=== PATIENT | female | born 1980 | race Caucasian/White ===

== ENCOUNTER → 2018-08-04 | Outpatient (CLI) | payer BC ==
[2018-08-04 09:36] LABS: Basophils % (A) 1 %; Eosinophils # (A) 0.1 k/uL (0-0.7); Eosinophils % (A) 1 %; HCT 40.4 % (34.0-46.0); HGB 13.4 gm/dL (11.4-16.0); Lymphocytes # (A) 1.5 k/uL (1.0-4.8); Lymphocytes % (A) 30 %; MCH 29.7 pg (25.0-35.0); MCHC 33.1 g/dL (31.0-37.0); MCV 89.6 fL (80.0-100.0); Mean Platelet Volume 6.8; Monocytes # (A) 0.3 k/uL (0-1.0); Monocytes % (A) 5 %; Neutrophils # (A) 3.1 k/uL (1.3-7.7); Neutrophils % (A) 62 %; Platelet Count 235 k/uL (150-450); RBC 4.51 m/uL (3.80-5.40); RDW 13.7 % (11.5-15.5); WBC 5.1 k/uL (3.8-10.6)
[2018-08-04 16:50] LABS: Anion Gap 10.2 mmol/L (4.00-12.00); Calcium 9.2 mg/dL (8.7-10.3); Carbon Dioxide 23.8 mmol/L (21.6-31.8); Potassium 3.7 mmol/L (3.5-5.5)
== END ==
LOC: LABWHC1 08:10
PROVIDERS: ATTEND Psychiatry & Neurology Neurology
DX: Z51.81 Encounter for therapeutic drug level monitoring (principal); Z79.899 Other long term (current) drug therapy
CPT/HCPCS: 36415; 80048; 85025

== ENCOUNTER → 2018-08-04 | Outpatient (CLI) | payer BC ==
--- NOTE | 2018-08-04 08:38 | MM ---
Reason for exam: clinical finding. Last mammogram was performed 4 years and 1 month ago. History: Family history of breast cancer in maternal grandmother at age 70. Physical Findings: Nurse did not find any significant physical abnormalities on exam. MG 3D Diag Mammo W/Cad FLORIDALMA Bilateral CC and MLO view(s) were taken. Prior study comparison: June 30, 2014, bilateral MG screening mammo w CAD. Finding: There is a 8 mm equal density (isodense), oval mass in the lower quadrant, central position of the left breast. There is a chronic nodularity in the right breast. These results were verbally communicated with the patient and result sheet given to the patient on 08/04/18. ASSESSMENT: Incomplete: need additional imaging evaluation, BI-RAD 0 RECOMMENDATION: Ultrasound of the left breast.
--- NOTE | 2018-08-04 08:40 | USB ---
Reason for exam: additional evaluation requested from abnormal screening. History: Family history of breast cancer in maternal grandmother at age 70. US Breast Limited LT Left limited breast ultrasound including focal area of concern, retroareolar and axilla demonstrates a 6 x 3 x 8mm oval, cystic lesion at 5 o'clock. These results were verbally communicated with the patient and result sheet given to the patient on 08/04/18. ASSESSMENT: Probably benign, BI-RAD 3 RECOMMENDATION: Follow-up diagnostic mammogram and ultrasound of the left breast in 6 months.
== END | disposition home or self-care (01) ==
LOC: RADMAMWWP 06:54
PROVIDERS: ATTEND Obstetrics & Gynecology
DX: N64.4 Mastodynia (principal); R92.8 Other abnormal and inconclusive findings on diagnostic imaging of breast
CPT/HCPCS: 77062; 77066

== ENCOUNTER → 2018-08-12 | Outpatient (CLI) | payer BC ==
[2018-08-12 13:08] VITALS: BP 139/81; PULSE 91; RESP 18; TEMP 98; BMI 25.7
--- NOTE | 2018-08-12 14:01 | P.GSHP ---
History of Present Illness H&P Date: 08/12/18 Chief Complaint: breast pain Diane is a 38-year-old white female who presents for breast evaluation. She complains of breast discomfort which appears to be cyclical occurring strongest right before her menstrual period started. [place]. Heart regular. She states that the pain is greatest in the right breast in the upper outer quadrant area and at times extends into the axilla and she feels a sensation of discomfort down her right arm. She states that she does have an IUD in the past several months she did have some spotting in the midportion of her cycle. She states just before the spotting she also has some breast discomfort. The patient does not feel any masses or lumps in her right breast. She does feel in the left breast near the nipple area over area there is some increased nodularity. She had a recent bilateral mammogram and left breast ultrasound performed. The mammogram was performed and [id number]. This revealed an oval mass in the lower quadrant central position of the left breast with chronic nodularity in the right breast. An ultrasound performed on the same day revealed a 6 x 8 mm of the cystic lesion at 5:00 in the left breast. This was felt to be probably benign BIRADS 3 and follow-up mammogram and ultrasound of the left breast in 6 months time was recommended. The patient drinks approximately 1 pop per day. The patient drinks at least one iced tea per day. Does not drink coffee. She stopped chocolate intermittently. She is does not smoke and is not exposed to secondhand smoke. Family history: 1. maternal grandmother: breast cancer, twice 2. maternal grandfather: prostate cancer Hormonal History: menarche: 9 : 7, 4 children, 5 miscarrages, breast fed: yes, first at 24 periods: irregular BCP: 2 years, IUD without hormones hormones: none Surgical History: 1. D&C two 2. 3. lasix 4. anal fissure in 20's Past Medical History: migrains Social History: smoke:none alcohol: none'drugs: none - Constitutional Constitutional: Denies chills, Denies fever - EENT Eyes: Ears: Ears, nose, mouth and throat: Reports headache - Breasts Breasts: - Cardiovascular Cardiovascular: Reports high blood pressure, Denies chest pain, Denies shortness of breath - Respiratory Respiratory: Denies cough, Denies 7 - Gastrointestinal Gastrointestinal: Denies abdominal pain, Denies diarrhea, Denies nausea, Denies vomiting - Genitourinary (Female) Genitourinary: Denies dysuria, Denies hematuria - Menstruation Menstruation: Reports period normal, Reports period spotting - Musculoskeletal Comment: right hand arthritis Musculoskeletal: Denies myalgias - Integumentary Integumentary: Denies pruritus, Denies rash - Neurological Neurological: Denies numbness, Denies weakness - Psychiatric Psychiatric: Denies anxiety, Denies depression - Endocrine Endocrine: Denies fatigue, Denies weight change - Hematologic/Lymphatic Comment: none - Allergic/Immunologic Comment: shots every two weeks Allergic/Immunologic: Reports seasonal allergies Past Medical History Past Medical History: Hypertension Additional Past Medical History / Comment(s): Migraine headaches, seasonal allergies, patient is heterozygous for MTHFR (does not require anticoagulation) History of Any Multi-Drug Resistant Organisms: None Reported Additional Past Surgical History / Comment(s): 1. D&C 2. Lasik (bilateral eye) Past Anesthesia/Blood Transfusion Reactions: No Reported Reaction Past Psychological History: No Psychological Hx Reported Smoking Status: Never smoker Past Alcohol Use History: None Reported Past Drug Use History: None Reported - Past Family History Mother Family Medical History: No Reported History Medications and Allergies Home Medications Medication Instructions Recorded Confirmed Type Loratadine [Claritin] 10 mg PO DAILY 10/16/13 08/12/18 History Labetalol HCl 100 mg PO BID 05/04/15 08/12/18 History Lansoprazole [Prevacid] 15 mg PO BID 09/09/15 08/12/18 History Ibuprofen [Motrin] 600 mg PO Q6HR PRN #40 tab 09/29/15 08/12/18 Rx Multivitamin [Multivitamins Adult 1 each PO 08/12/18 History Gummies] Topiramate [Topamax] 50 mg PO DAILY 08/12/18 08/12/18 History Allergies Allergy/AdvReac Type Severity Reaction Status Date / Time eletriptan HBr [From Relpax] Allergy Swelling Verified 08/12/18 13:08 metoclopramide HCl AdvReac Unknown Verified 08/12/18 13:08 [From Reglan] prochlorperazine maleate AdvReac Unknown Verified 08/12/18 13:08 [From Compazine] Surgical - Exam Vital Signs Temp Pulse Resp BP Pulse Ox 98.0 F 91 18 139/81 100 08/12/18 13:04 08/12/18 13:04 08/12/18 13:04 08/12/18 13:04 08/12/18 13:04 BMI 25.7 - General well developed, well nourished, no distress - Eyes normal ocular movement, no icteric - ENT no hearing loss, no congestion - Neck no masses, trachea midline - Respiratory normal respiratory effort, clear to auscultation - Cardiovascular Rhythm: regular Heart Sounds: - Abdomen Abdomen: soft, non tender, no guarding, no rigid, no rebound - Integumentary notmal turgor - Neurologic no disoriented, no combative - Musculoskeletal normal gait, normal posture - Psychiatric oriented to time, oriented to person, oriented to place, speech is normal, memory intact Breast examination: Right breast: Multiple positional exam fibrocystic changes, increased density of breast tissue in the upper outer quadrant lesion No dominant mass or nodule is of concern Right axilla: No adenopathy of concern Left Breast: Multi-positional examination fibrocystic changes, left breast slightly larger than right breast but does not appear is dense Left axilla: No adenopathy of concern Results mammogram and ultrasound reports reviewed Assessment and Plan Assessment: Impression: 1. Right breast pain/cylical 2. Fibrocystic changes in the breast 3. Abnormal mammogram and ultrasound left breast 4. Migraine headaches started on Topamax within last year 5. Family history grandmother with breast cancer 6. At this time there is no evidence of any malignancy in the breast Plan: 1. Repeat left breast mammogram and ultrasound in 6 months time 2. Follow-up examination after ultrasound 3. We have discussed cyclical breast pain and the feeling that her pain is most likely related to change in hormones 4. We have discussed Topamax and the small risk that this may cause breast pain approximately 4%, 5. We have discussed avoiding caffeine and that this may decrease her breast discomfort CC: Dr. Dennis, DR. Ken ([place])
== END | disposition home or self-care (01) ==
LOC: WWCWWP 12:56
PROVIDERS: ATTEND Surgery
DX: Z53.9 Procedure and treatment not carried out, unspecified reason (principal)

== ENCOUNTER → 2018-10-05 | Outpatient (CLI) | payer BC ==
[2018-10-05 11:17] LABS: Basophils % (A) 0 %; Eosinophils # (A) 0.1 k/uL (0-0.7); Eosinophils % (A) 1 %; HCT 40.8 % (34.0-46.0); HGB 13.4 gm/dL (11.4-16.0); Lymphocytes # (A) 1.8 k/uL (1.0-4.8); Lymphocytes % (A) 23 %; MCH 30.2 pg (25.0-35.0); MCHC 32.9 g/dL (31.0-37.0); MCV 91.9 fL (80.0-100.0); Mean Platelet Volume 6.8; Monocytes # (A) 0.3 k/uL (0-1.0); Monocytes % (A) 3 %; Neutrophils # (A) 5.5 k/uL (1.3-7.7); Neutrophils % (A) 71 %; Platelet Count 260 k/uL (150-450); RBC 4.44 m/uL (3.80-5.40); WBC 7.8 k/uL (3.8-10.6)
[2018-10-05 16:48] LABS: LDL Cholesterol,Calculated 91.8 mg/dL (0.0-131.0); VLDL Calculation 12.2 mg/dL (5.00-40.00)
[2018-10-05 16:49] LABS: Albumin 4.8 g/dL (3.80-4.90); Albumin/Globulin Ratio 2.29 (1.60-3.17); Anion Gap 7.2 mmol/L (4.00-12.00); Calcium 9.6 mg/dL (8.7-10.3); Carbon Dioxide 26.8 mmol/L (21.6-31.8); Globulin 2.1 g/dL (1.6-3.3); Potassium 4.5 mmol/L (3.5-5.5); Total Bilirubin 0.7 mg/dL (0.3-1.2); Total Protein 6.9 g/dL (6.2-8.2)
[2018-10-05 16:57] LABS: T4, Free (Free Thyroxine) 1.1 ng/dL (0.80-1.80)
== END ==
LOC: LABWHC1 10:42
PROVIDERS: ATTEND Family Medicine
DX: Z00.00 Encounter for general adult medical examination without abnormal findings (principal); J32.9 Chronic sinusitis, unspecified; H53.2 Diplopia
CPT/HCPCS: 36415; 80053; 80061; 84439; 84443; 84480; 85025

== ENCOUNTER → 2019-02-14 | Outpatient (CLI) | payer BC ==
--- NOTE | 2019-02-14 09:08 | MM ---
Reason for exam: follow-up at short interval from prior study. Last mammogram was performed 6 months ago. History: Family history of breast cancer in maternal grandmother at age 70. Physical Findings: Nurse did not find any significant physical abnormalities on exam. MG 3D Diag Mammo W/Cad LT CC and MLO view(s) were taken of the left breast. Prior study comparison: August 04, 2018, bilateral MG 3d diag mammo w/cad FLORIDALMA. June 30, 2014, bilateral MG screening mammo w CAD. There are scattered fibroglandular densities. There is chronic nodularity in the left breast. There is no discrete abnormality. These results were verbally communicated with the patient and result sheet given to the patient on 02/14/19. ASSESSMENT: Benign, BI-RAD 2 RECOMMENDATION: Routine screening mammogram of both breasts in 6 months. Back on schedule for July 2019.
--- NOTE | 2019-02-14 09:09 | USB ---
Reason for exam: follow-up at short interval from prior study. History: Family history of breast cancer in maternal grandmother at age 70. US Breast Limited LT Left limited breast ultrasound including focal area of concern, retroareolar and axilla demonstrates a 0.6 x 0.3 x 0.2cm cystic, stable lesion at 5 o'clock. These results were verbally communicated with the patient and result sheet given to the patient on 02/14/19. ASSESSMENT: Benign, BI-RAD 2 RECOMMENDATION: Routine screening mammogram of both breasts in 6 months. Back on schedule for July 2019.
== END | disposition home or self-care (01) ==
LOC: RADMAMWWP 07:41
PROVIDERS: ATTEND Surgery
DX: R92.8 Other abnormal and inconclusive findings on diagnostic imaging of breast (principal)
CPT/HCPCS: 77061; 77065

== ENCOUNTER → 2019-02-17 | Outpatient (CLI) | payer BC ==
[2019-02-17 14:48] VITALS: BP 137/90; PULSE 81; RESP 18; TEMP 98.3; BMI 25.7
--- NOTE | 2019-02-17 15:34 | P.PN ---
Subjective Progress Note Date: 02/17/19 Diane is a 38-year-old white female who presented for breast evaluation on 08-12-18. She complained of breast discomfort which appeared to be cyclical occurring strongest right before her menstrual period started. She stated that the pain was greatest in the right breast in the upper outer quadrant area and at times extends into the axilla and she felt a sensation of discomfort down her right arm. She has started taking was area and she states that this discomfort has subsided. However now she is complaining of some discomfort in the left breast in the medial aspect of the breast. This pain is likewise cyclical but not as uncomfortable as her right breast pain had done. She stated that she does have an IUD patient has been in place for 3 years, she is no longer having any spotting in between her periods. The patient does not feel any masses or lumps in her right breast. She does feel in the left breast near the nipple aerola there is some increased nodularity. She had a recent bilateral mammogram and left breast ultrasound performed. The mammogram was performed and . This revealed an oval mass in the lower quadrant central position of the left breast with chronic nodularity in the right breast. An ultrasound performed on the same day revealed a 6 x 8 mm of the cystic lesion at 5:00 in the left breast. This was felt to be probably benign BIRADS 3 and follow-up mammogram and ultrasound of the left breast in 6 months time was recommended. She did have repeat left breast mammogram and ultrasound. The left breast mammogram was performed in . This revealed chronic nodularity with no discrete abnormality. The left breast ultrasound revealed a 0.6 x 0.3 x 0.2 cystic stable lesion at 5:00. This was felt to be benign BIRADS 2. Routine screening of both breasts in 6 months was recommended. The patient had been drinking 1 pop and one iced tea per day, she is now drinking water. Does not drink coffee. She eats chocolate occasionally. She is does not smoke and is not exposed to secondhand smoke. Family history: 1. maternal grandmother: breast cancer, twice 2. maternal grandfather: prostate cancer Hormonal History: menarche: 9 G9,P4 children, 5 miscarrages, breast fed: yes, first at 24 periods: irregular BCP: 2 years, IUD without hormones hormones: none Surgical History: 1. D&C two 2. 3. lasix 4. anal fissure in 20's Past Medical History: migrains (emgality for migrains, shot 1/month) Social History: smoke:none alcohol: none drugs: none - Constitutional Constitutional: Denies chills, Denies fever - EENT Eyes: Ears: Ears, nose, mouth and throat: Reports headache improved - Breasts Breasts: as per HPI - Cardiovascular Cardiovascular: Reports high blood pressure, Denies chest pain, Denies shortness of breath - Respiratory Respiratory: Denies cough - Gastrointestinal Gastrointestinal: Denies abdominal pain, Denies diarrhea, Denies nausea, Denies vomiting - Genitourinary (Female) Genitourinary: Denies dysuria, Denies hematuria - Menstruation Menstruation: Reports period normal, Reports period spotting - Musculoskeletal Comment: right hand arthritis Musculoskeletal: Denies myalgias - Integumentary Integumentary: Denies pruritus, Denies rash - Neurological Neurological: Denies numbness, Denies weakness - Psychiatric Psychiatric: Denies anxiety, Denies depression - Endocrine Endocrine: Denies fatigue, Denies weight change - Hematologic/Lymphatic Comment: none - Allergic/Immunologic Comment: shots every two weeks Allergic/Immunologic: Reports seasonal allergies Past Medical History Past Medical History: Hypertension Additional Past Medical History / Comment(s): Migraine headaches, seasonal allergies, patient is heterozygous for MTHFR (does not require anticoagulation) History of Any Multi-Drug Resistant Organisms: None Reported Additional Past Surgical History / Comment(s): 1. D&C 2. Lasik (bilateral eye) Past Anesthesia/Blood Transfusion Reactions: No Reported Reaction Past Psychological History: No Psychological Hx Reported Smoking Status: Never smoker Past Alcohol Use History: None Reported Past Drug Use History: None Reported Objective - Vital Signs Vital signs: Vital Signs Temp 98.3 F 02/17/19 14:46 Pulse 81 02/17/19 14:46 Resp 18 02/17/19 14:46 BP 137/90 02/17/19 14:46 Pulse Ox 99 02/17/19 14:46 Intake & Output 02/16/19 02/17/19 02/17/19 18:59 06:59 18:59 Weight 68.039 kg - Exam BMI 25.7 - Constitutional General appearance: Present: average body habitus - EENT Eyes: Present: EOMI ENT: Present: hearing grossly normal - Neck Neck: Present: normal ROM - Respiratory Respiratory: bilateral: CTA - Cardiovascular Rhythm: regular Heart sounds: normal: S1, S2 - Integumentary Integumentary: Present: normal turgor - Musculoskeletal Musculoskeletal: Present: gait normal - Psychiatric Psychiatric: Present: A&O x's 3, appropriate affect, intact judgment & insight - Additional findings Additional findings: Breast exam: Right breast: multipositional exam very dense fibrocystic breast tissue no dominant masses or nodules of concern Right axilla: No adenopathy of concern Left breast: Multi-positional exam dense fibrocystic breast tissue no dominant mass or not his of concern Left axilla: No adenopathy of concern Assessment and Plan Assessment: Impression: 1. Right breast pain/cyclical improved 2. Fibrocystic breast changes 3. Migraine headaches 4. Family history grandmother breast cancer 5. Recent left breast mammogram and ultrasound benign BIRADS 2 6. Patient decreased caffeinated beverages and started was area with improvement and breast pain 7. Intermittent left breast discomfort Plan: 1. Continue [place] oil and decrease caffeine 2. Repeat bilateral mammogram in 6 months time 3. Medical management of medical conditions 4. Follow-up for examination in 6 months 5. Patient has any questions or concerns should be happy to see her sooner Cc: ( [place]), Dr. Dennis
== END | disposition home or self-care (01) ==
LOC: WWCWWP 14:24
PROVIDERS: ATTEND Surgery
DX: Z53.9 Procedure and treatment not carried out, unspecified reason (principal)

== ENCOUNTER → 2019-08-15 | Outpatient (CLI) | payer BC ==
--- NOTE | 2019-08-16 08:42 | MM ---
Reason for exam: follow-up at short interval from prior study. Last mammogram was performed 6 months ago. History: Family history of breast cancer in maternal grandmother at age 70. Physical Findings: Nurse did not find any significant physical abnormalities on exam. MG 3D Diag Mammo W/Cad FLORIDALMA Bilateral CC and MLO view(s) were taken. Prior study comparison: February 14, 2019, left breast MG 3d diag mammo w/cad LT. August 04, 2018, bilateral MG 3d diag mammo w/cad FLORIDALMA. There are scattered fibroglandular densities. There is a stable left lower outer quadrant anterior depth oval circumscribed mass. No suspicious abnormality. These results were verbally communicated with the patient and result sheet given to the patient on 08/15/19. ASSESSMENT: Probably benign, BI-RAD 3 RECOMMENDATION: Follow-up diagnostic mammogram of both breasts in 1 year.
== END | disposition home or self-care (01) ==
LOC: RADMAMWWP 15:19
PROVIDERS: ATTEND Surgery
DX: R92.8 Other abnormal and inconclusive findings on diagnostic imaging of breast (principal)
CPT/HCPCS: 77062; 77066

== ENCOUNTER → 2020-09-14 | Outpatient (CLI) | payer BC ==
--- NOTE | 2020-09-17 09:28 | MM ---
Reason for exam: additional evaluation requested from prior study. Last mammogram was performed 1 year and 1 month ago. History: Family history of breast cancer in maternal grandmother at age 70. Physical Findings: Nurse did not find any significant physical abnormalities on exam. MG 3D Diag Mammo W/Cad FLORIDALMA Bilateral CC and MLO view(s) were taken. Prior study comparison: August 15, 2019, bilateral MG 3d diag mammo w/cad FLORIDALMA. February 14, 2019, left breast MG 3d diag mammo w/cad LT. August 04, 2018, bilateral MG 3d diag mammo w/cad FLORIDALMA. There are scattered fibroglandular densities. No significant new findings when compared with previous films. These results were verbally communicated with the patient and result sheet given to the patient on 09/14/20. ASSESSMENT: Benign, BI-RAD 2 RECOMMENDATION: Routine screening mammogram of both breasts in 1 year.
== END | disposition home or self-care (01) ==
LOC: RADMAMWWP 13:07
PROVIDERS: ATTEND Surgery
DX: Z80.3 Family history of malignant neoplasm of breast (principal)
CPT/HCPCS: 77062; 77066

== ENCOUNTER → 2020-09-20 | Outpatient (CLI) | payer BC ==
[2020-09-20 15:52] VITALS: BP 135/88; PULSE 77; RESP 16; TEMP 98.2
--- NOTE | 2020-09-20 16:07 | P.PN ---
Subjective Progress Note Date: 09/20/20 Principal diagnosis: fibrocystic breast, mastodynia Diane is a 40-year-old white female who presented for breast evaluation on 08-12-18. She complained of breast discomfort which appeared to be cyclical occurring strongest right before her menstrual period started. She stated that the pain was greatest in the right breast in the upper outer quadrant area and at times extends into the axilla and she felt a sensation of discomfort down her right arm. She has started taking a vitamin; [place] GLA complex she states that this discomfort has subsided. However now she is complaining of some discomfort in the left breast in the medial aspect of the breast. This pain is likewise cyclical but not as uncomfortable as her right breast pain had done. She is not complaining of any new lumps masses or nodules in her breast. No nipple discharge or skin changes. NO trauma or infection in her breast. She had a bilateral mammogram on 09-14-20. This was benign BIRAD 2. Caffeine: Ounces per day Nicotine: Negative Chocolate: Occasional hormones: Negative Family history: 1. maternal grandmother: breast cancer, twice 2. maternal grandfather: prostate cancer Hormonal History: menarche: 9 G9,P4 children, 5 miscarrages, breast fed: yes, first at 24 periods: irregular BCP: 2 years, IUD without hormones hormones: none Surgical History: 1. D&C two 2. 3. lasix 4. anal fissure in 20's 5. gallbladder Past Medical History: migrains (emgality for migrains, shot 1/month) Social History: smoke:none alcohol: none drugs: none - Constitutional Constitutional: Denies chills, Denies fever - EENT Eyes: Ears: Ears, nose, mouth and throat: Reports headache improved - Breasts Breasts: as per HPI - Cardiovascular Cardiovascular: Reports high blood pressure, Denies chest pain, Denies shortness of breath - Respiratory Respiratory: Denies cough - Gastrointestinal Gastrointestinal: Denies abdominal pain, Denies diarrhea, Denies nausea, Denies vomiting - Genitourinary (Female) Genitourinary: Denies dysuria, Denies hematuria - Menstruation Menstruation: Reports period normal, Reports period spotting - Musculoskeletal Comment: right hand arthritis Musculoskeletal: Denies myalgias - Integumentary Integumentary: Denies pruritus, Denies rash - Neurological Neurological: Denies numbness, Denies weakness - Psychiatric Psychiatric: Denies anxiety, Denies depression - Endocrine Endocrine: Denies fatigue, Denies weight change - Hematologic/Lymphatic Comment: none - Allergic/Immunologic Comment: shots every two weeks Allergic/Immunologic: Reports seasonal allergies Past Medical History Past Medical History: Hypertension Additional Past Medical History / Comment(s): Migraine headaches, seasonal allergies, patient is heterozygous for MTHFR (does not require anticoagulation) History of Any Multi-Drug Resistant Organisms: None Reported Additional Past Surgical History / Comment(s): 1. D&C 2. Lasik (bilateral eye) Past Anesthesia/Blood Transfusion Reactions: No Reported Reaction Past Psychological History: No Psychological Hx Reported Smoking Status: Never smoker Past Alcohol Use History: None Reported Past Drug Use History: None Reported Objective - Vital Signs Vital signs: Vital Signs Temp 98.2 F 09/20/20 15:50 Pulse 77 09/20/20 15:50 Resp 16 09/20/20 15:50 BP 135/88 09/20/20 15:50 Pulse Ox 97 09/20/20 15:50 Intake & Output 09/19/20 09/20/20 09/20/20 18:59 06:59 18:59 Weight 72.575 kg - Exam BMI 27.5 - Constitutional General appearance: Present: average body habitus - EENT Eyes: Present: EOMI ENT: Present: hearing grossly normal - Neck Neck: Present: normal ROM - Respiratory Respiratory: bilateral: CTA - Cardiovascular Rhythm: regular Heart sounds: normal: S1, S2 - Gastrointestinal General gastrointestinal: Present: soft - Integumentary Integumentary: Present: normal turgor - Musculoskeletal Musculoskeletal: Present: gait normal - Psychiatric Psychiatric: Present: A&O x's 3, appropriate affect, intact judgment & insight - Additional findings Additional findings: Breast exam: BRA: 38C inspection: grade 2 ptosis bilateral Palpation: right breast: Multi-positional exam fibrocystic changes, no dominant masses or nodules of concern Right axilla: No adenopathy of concern Left breast: Multiple positional exam fibrocystic changes no dominant masses or nodules of concern Left axilla: No adenopathy of concern Assessment and Plan Assessment: Impression: 1. Fibrocystic breast changes 2. Mastodynia improve 3. No discrete dominant masses or nodules of concern to warrant interventional biopsy 4. Recent bilateral mammogram 4921 BIRADS 2 Plan: 1. Repeat bilateral mammogram in 1 year 2. Patient has had discussion regarding decreasing caffeine intake at this time she is going to consider that 3. Follow up sooner if any questions or concerns 4. follow up in 1 year CC: DR. Galeas
== END ==
LOC: WWCWWP 15:42
PROVIDERS: ATTEND Surgery
DX: N60.11 Diffuse cystic mastopathy of right breast (principal); N60.12 Diffuse cystic mastopathy of left breast; I10 Essential (primary) hypertension

== ENCOUNTER → 2021-09-16 | Outpatient (CLI) | payer BC ==
--- NOTE | 2021-09-18 12:08 | MM ---
Reason for exam: screening (asymptomatic). Last mammogram was performed 1 year ago. History: Family history of breast cancer in maternal grandmother at age 70. Physical Findings: A clinical breast exam by your physician is recommended on an annual basis and results should be correlated with mammographic findings. MG 3D Screening Mammo W/Cad Bilateral CC and MLO view(s) were taken. Prior study comparison: September 14, 2020, bilateral MG 3d diag mammo w/cad FLORIDALMA. August 15, 2019, bilateral MG 3d diag mammo w/cad FLORIDALMA. There are scattered fibroglandular densities. There is chronic nodularity in the left breast. No significant changes when compared with prior studies. ASSESSMENT: Benign, BI-RAD 2 RECOMMENDATION: Routine screening mammogram of both breasts in 1 year.
== END | disposition home or self-care (01) ==
LOC: RADMAMWWP 14:49
PROVIDERS: ATTEND Surgery
DX: Z12.31 Encounter for screening mammogram for malignant neoplasm of breast (principal); Z80.3 Family history of malignant neoplasm of breast
CPT/HCPCS: 77063; 77067

== ENCOUNTER → 2021-09-19 | Outpatient (CLI) | payer BC ==
[2021-09-19 15:48] VITALS: BP 138/90; PULSE 79; RESP 18; TEMP 98.2
--- NOTE | 2021-09-19 15:55 | P.PN ---
Subjective Progress Note Date: 09/19/21 Principal diagnosis: fibrocystic breast disease fibrocystic breast, mastodynia Diane is a 40-year-old white female who presented for breast evaluation on 08-12-18. She complained of breast discomfort which appeared to be cyclical occurring strongest right before her menstrual period started. She stated that the pain was greatest in the right breast in the upper outer quadrant area and at times extends into the axilla and she felt a sensation of discomfort down her right arm. She has started taking a vitamin; Shaklee GLA complex she states that this discomfort has subsided. However then she began complaining of some discomfort in the left breast in the medial aspect of the breast. This pain was likewise cyclical but not as uncomfortable as her right breast pain had been. She was not complaining of any new lumps masses or nodules in her breast. No nipple discharge or skin changes. No trauma or infection in her breast. She had a bilateral mammogram on 09-16-21. This was benign BIRAD 2. She is not using the Shaklee GLA complex at this time. Caffeine: occasional Nicotine: Negative Chocolate: Occasional hormones: Negative BCP: less than two years in the remote past Family history: 1. maternal grandmother: breast cancer, twice 2. maternal grandfather: prostate cancer Hormonal History: menarche: 9 G9,P4 children, 5 miscarrages, breast fed: yes, first at 24 periods: irregular BCP: 2 years, IUD without hormones hormones: none Surgical History: 1. D&C two 2. 3. lasix 4. anal fissure in 20's 5. gallbladder Past Medical History: migrains (emgality for migrains, shot 1/month) Social History: smoke:none alcohol: none drugs: none - Constitutional Constitutional: Denies chills, Denies fever - EENT Eyes: Ears: Ears, nose, mouth and throat: Reports headache improved - Breasts Breasts: as per HPI - Cardiovascular Cardiovascular: Reports high blood pressure, Denies chest pain, Denies shortness of breath - Respiratory Respiratory: Denies cough - Gastrointestinal Gastrointestinal: Denies abdominal pain, Denies diarrhea, Denies nausea, Denies vomiting - Genitourinary (Female) Genitourinary: Denies dysuria, Denies hematuria - Menstruation Menstruation: Reports period normal, Reports period spotting - Musculoskeletal Comment: right hand arthritis Musculoskeletal: Denies myalgias - Integumentary Integumentary: Denies pruritus, Denies rash - Neurological Neurological: Denies numbness, Denies weakness - Psychiatric Psychiatric: Denies anxiety, Denies depression - Endocrine Endocrine: Denies fatigue, Denies weight change - Hematologic/Lymphatic Comment: none - Allergic/Immunologic Comment: shots every two weeks Allergic/Immunologic: Reports seasonal allergies Objective - Constitutional General appearance: Present: cooperative - EENT Eyes: Present: EOMI - Neck Neck: Present: normal ROM - Respiratory Respiratory: bilateral: CTA - Cardiovascular Rhythm: regular Heart sounds: normal: S1, S2 - Gastrointestinal General gastrointestinal: Present: soft - Integumentary Integumentary: Present: normal turgor - Musculoskeletal Musculoskeletal: Present: gait normal - Psychiatric Psychiatric: Present: A&O x's 3, appropriate affect, intact judgment & insight - Additional findings Additional findings: Breast Exam: BRA: 38C inspection: Grade 2 ptosis bilaterally Palpation: Right breast: Multiple positional exam fibrocystic changes or dominant masses or nodules of concern Right axilla: No adenopathy of concern Left breast multiposition exam fibrocystic changes no dominant masses or nodules of concern Left axilla: No adenopathy of concern Assessment and Plan Assessment: Impression: Bilateral fibrocystic breast changes Mastodynia improved Most recent bilateral mammogram [id number] Plan: Patient has stopped caffeine intake Mastodynia is markedly improved Bilateral mammogram in 1 year with physician exam at that time Patient to follow up sooner any questions or concerns CC: Dr. Galeas
== END ==
LOC: WWCWWP 15:40
PROVIDERS: ATTEND Surgery
DX: N60.11 Diffuse cystic mastopathy of right breast (principal); N60.12 Diffuse cystic mastopathy of left breast; G43.909 Migraine, unspecified, not intractable, without status migrainosus; Z88.6 Allergy status to analgesic agent; Z88.8 Allergy status to other drugs, medicaments and biological substances

== ENCOUNTER → 2022-09-18 | Outpatient (CLI) | payer BC ==
--- NOTE | 2022-09-19 08:18 | MM ---
Reason for Exam: Screening (asymptomatic). Last screening mammogram was performed 12 month(s) ago. Patient History: Menarche at age 10. First Full-Term at age 24. Patient has history of breast feeding. Maternal grandmother had breast cancer, age 70. Risk Values: Virginie 5 year model risk: 0.9%. NCI Lifetime model risk: 10.7%. Prior Study Comparison: 08/15/2019 Bilateral Diagnostic Mammogram, [facility]. 09/14/2020 Bilateral Diagnostic Mammogram, [facility]. 09/16/2021 Bilateral Screening Mammogram, [facility]. Tissue Density: The breast tissue is almost entirely fat. Findings: Analyzed By CAD. There is no suspicious group of microcalcifications or new suspicious mass in either breast. Overall Assessment: Negative, BI-RAD 1 Management: Screening Mammogram of both breasts in 1 year. A clinical breast exam by your physician is recommended on an annual basis and results should be correlated with mammographic findings. [facility] will attempt to contact patient to return for supplemental views and ultrasound if indicated. Electronically signed and approved by: Antonio Torres DO
== END | disposition home or self-care (01) ==
LOC: RADMAMWWP 16:43
PROVIDERS: ATTEND Surgery
DX: Z12.31 Encounter for screening mammogram for malignant neoplasm of breast (principal); Z80.3 Family history of malignant neoplasm of breast
CPT/HCPCS: 77063; 77067

== ENCOUNTER → 2022-09-25 | Outpatient (CLI) | payer BC ==
[2022-09-25 16:02] VITALS: BP 146/94; PULSE 74; RESP 17; TEMP 98.1
--- NOTE | 2022-09-25 16:16 | P.PN ---
Subjective Progress Note Date: 09/25/22 Principal diagnosis: fibrocystic breast disease ibrocystic breast, mastodynia Diane is a 42-year-old white female who presented for breast evaluation on 08-12-18. She complained of breast discomfort which appeared to be cyclical occurring strongest right before her menstrual period started. She stated that the pain was greatest in the right breast in the upper outer quadrant area and at times extends into the axilla and she felt a sensation of discomfort down her right arm. She has started taking a vitamin; Shaklee GLA complex she states that this discomfort has subsided. However then she began complaining of some discomfort in the left breast in the medial aspect of the breast. This pain was likewise cyclical but not as uncomfortable as her right breast pain had been. She was not complaining of any new lumps masses or nodules in her breast. No nipple discharge or skin changes. No trauma or infection in her breast. She had a bilateral mammogram on 09-18-22. This was benign BIRAD 1. She has started using the Shaklee GLA complex about 3 months ago, she is uncertain as to what is in it. This time she is not complaining of any new lumps masses or not is of concern in either breast she is not complaining of any nipple discharge or skin changes. She is not complaining of any trauma or infection in her breast. Caffeine: occasional Nicotine: Negative Chocolate: Occasional hormones: Negative BCP: less than two years in the remote past Family history: 1. maternal grandmother: breast cancer, twice 2. maternal grandfather: prostate cancer Hormonal History: menarche: 9 G9,P4 children, 5 miscarrages, breast fed: yes, first at 24 periods: irregular BCP: 2 years, IUD without hormones hormones: none Surgical History: 1. D&C two 2. 3. lasix 4. anal fissure in 20's 5. gallbladder Past Medical History: migrains (emgality for migrains, shot 1/month) Social History: smoke:none alcohol: none drugs: none - Constitutional Constitutional: Denies chills, Denies fever - EENT Eyes: Ears: Ears, nose, mouth and throat: Reports headache improved - Breasts Breasts: as per HPI - Cardiovascular Cardiovascular: Reports high blood pressure, Denies chest pain, Denies shortness of breath - Respiratory Respiratory: Denies cough - Gastrointestinal Gastrointestinal: Denies abdominal pain, Denies diarrhea, Denies nausea, Denies vomiting - Genitourinary (Female) Genitourinary: Denies dysuria, Denies hematuria - Menstruation Menstruation: Reports period normal, Reports period spotting - Musculoskeletal Comment: right hand arthritis Musculoskeletal: Denies myalgias - Integumentary Integumentary: Denies pruritus, Denies rash - Neurological Neurological: Denies numbness, Denies weakness - Psychiatric Psychiatric: Denies anxiety, Denies depression - Endocrine Endocrine: Denies fatigue, Denies weight change - Hematologic/Lymphatic Comment: none - Allergic/Immunologic Comment: shots every two weeks Allergic/Immunologic: Reports seasonal allergies Objective - Vital Signs Vital signs: Vital Signs Temp 98.1 F 09/25/22 16:00 Pulse 74 09/25/22 16:00 Resp 17 09/25/22 16:00 BP 146/94 09/25/22 16:00 Pulse Ox 100 09/25/22 16:00 FiO2 Intake & Output 09/24/22 09/25/22 09/25/22 18:59 06:59 18:59 Weight 68.039 kg - Constitutional General appearance: Present: cooperative - EENT Eyes: Present: EOMI ENT: Present: hearing grossly normal - Neck Neck: Present: normal ROM - Respiratory Respiratory: bilateral: CTA - Cardiovascular Rhythm: regular Heart sounds: normal: S1, S2 - Gastrointestinal General gastrointestinal: Present: soft - Integumentary Integumentary: Present: normal turgor - Musculoskeletal Musculoskeletal: Present: gait normal - Psychiatric Psychiatric: Present: A&O x's 3, appropriate affect, intact judgment & insight - Additional findings Additional findings: Breast Exam: BRA: 38C inspection: Grade 2 ptosis bilaterally Palpation: Right breast: Multiple positional exam fibrocystic changes or dominant masses or nodules of concern Right axilla: No adenopathy of concern Left breast multiposition exam fibrocystic changes no dominant masses or nodules of concern Left axilla: No adenopathy of concern Assessment and Plan Assessment: Tissue: Improved mastodynia Fibrocystic breast changes Plan: Bilateral mammogram in 1 year with physician exam at that time Patient to follow up sooner any questions or concerns Patient is taking her oral supplements on her own as I cannot comment I'm not sure what is in the oral supplements CC: Dr. Galeas
== END ==
LOC: WWCWWP 15:47
PROVIDERS: ATTEND Surgery
DX: N60.11 Diffuse cystic mastopathy of right breast (principal); Z80.3 Family history of malignant neoplasm of breast; N64.4 Mastodynia; G43.909 Migraine, unspecified, not intractable, without status migrainosus; Z88.8 Allergy status to other drugs, medicaments and biological substances; Z88.6 Allergy status to analgesic agent

== ENCOUNTER → 2023-09-21 | Outpatient (CLI) | payer BC ==
--- NOTE | 2023-09-22 18:48 | MM ---
Reason for Exam: Screening (asymptomatic). Last screening mammogram was performed 12 month(s) ago. Patient History: Menarche at age 10. First Full-Term at age 24. Patient has history of breast feeding. Maternal grandmother had breast cancer, age 70. Last menstrual period: 09/11/2023 Risk Values: Virginie 5 year model risk: 0.9%. NCI Lifetime model risk: 10.6%. Prior Study Comparison: 09/14/2020 Bilateral Diagnostic Mammogram, [facility]. 09/16/2021 Bilateral Screening Mammogram, [facility]. 09/18/2022 Bilateral MG 3D screening mammo w/cad, [facility]. Tissue Density: There are scattered areas of fibroglandular density. Findings: Analyzed By CAD. Chronic nodularity on the right. There is no suspicious group of microcalcifications or new suspicious mass in either breast. Overall Assessment: Benign, BI-RAD 2 Management: Screening Mammogram of both breasts in 1 year. . Patient should continue monthly self-breast exams. A clinical breast exam by your physician is recommended on an annual basis. This exam should not preclude additional follow-up of suspicious palpable abnormalities. Note on Virginie scores and lifetime risk: 1. A Virginie score greater than 3% is considered moderate risk. If this is the case, consider specialist referral to assess eligibility for a risk reducing agent. 2. If overall lifetime risk for the development of breast cancer is 20% or higher, the patient may qualify for future screening with alternating mammogram and breast MRI. Electronically signed and approved by: Juventino Salinas M.D. Radiologist
== END | disposition home or self-care (01) ==
LOC: RADMAMWWP 07:19
PROVIDERS: ATTEND Surgery
DX: Z12.31 Encounter for screening mammogram for malignant neoplasm of breast (principal); Z80.3 Family history of malignant neoplasm of breast
CPT/HCPCS: 77063; 77067

== ENCOUNTER → 2023-09-24 | Outpatient (CLI) | payer BC ==
--- NOTE | 2023-09-24 13:32 | P.PN ---
Subjective Progress Note Date: 09/24/23 Principal diagnosis: fibrocystic breast changes 09/25/22 Principal diagnosis: fibrocystic breast disease Diane is a 42-year-old white female who presented for breast evaluation on 08-12-18. She complained of breast discomfort which appeared to be cyclical occurring strongest right before her menstrual period started. She stated that the pain was greatest in the right breast in the upper outer quadrant area and at times extends into the axilla and she felt a sensation of discomfort down her right arm. She has started taking a vitamin; Shaklee GLA complex she states that this discomfort has subsided. However then she began complaining of some discomfort in the left breast in the medial aspect of the breast. This pain was likewise cyclical but not as uncomfortable as her right breast pain had been. She was not complaining of any new lumps masses or nodules in her breast. No nipple discharge or skin changes. No trauma or infection in her breast. She had a bilateral mammogram on 09-18-22. This was benign BIRAD 1. She has started using the Shaklee GLA complex about 3 months ago, she is uncertain as to what is in it. This time she is not complaining of any new lumps masses or not is of concern in either breast she is not complaining of any nipple discharge or skin changes. She is not complaining of any trauma or infection in her breast. 09-24-23 Bilateral mammogram on 09-21-23 BIRAD 2 personally reviewed To take the supplement Shaklee GLA complex She is not complaining of any new lumps masses or nodules of concern in her breast, the discomfort has improved She is still having regular periods. Caffeine: occasional Nicotine: Negative Chocolate: Occasional hormones: Negative BCP: less than two years in the remote past Family history: 1. maternal grandmother: breast cancer, twice 2. maternal grandfather: prostate cancer Hormonal History: menarche: 9 G9,P4 children, 5 miscarrages, breast fed: yes, first at 24 periods: irregular BCP: 2 years, IUD without hormones hormones: none Surgical History: 1. D&C two 2. 3. lasix 4. anal fissure in 20's 5. gallbladder Past Medical History: migrains (emgality for migrains, shot 1/month) Social History: smoke:none alcohol: none drugs: none - Constitutional Constitutional: Denies chills, Denies fever - EENT Eyes: Ears: Ears, nose, mouth and throat: Reports headache improved - Breasts Breasts: as per HPI - Cardiovascular Cardiovascular: Reports high blood pressure, Denies chest pain, Denies shortness of breath - Respiratory Respiratory: Denies cough - Gastrointestinal Gastrointestinal: Denies abdominal pain, Denies diarrhea, Denies nausea, Denies vomiting - Genitourinary (Female) Genitourinary: Denies dysuria, Denies hematuria - Menstruation Menstruation: Reports period normal, Reports period spotting - Musculoskeletal Comment: right hand arthritis Musculoskeletal: Denies myalgias - Integumentary Integumentary: Denies pruritus, Denies rash - Neurological Neurological: Denies numbness, Denies weakness - Psychiatric Psychiatric: Denies anxiety, Denies depression - Endocrine Endocrine: Denies fatigue, Denies weight change - Hematologic/Lymphatic Comment: none - Allergic/Immunologic Comment: shots every two weeks Allergic/Immunologic: Reports seasonal allergies Objective - Constitutional General appearance: Present: cooperative - EENT Eyes: Present: EOMI ENT: Present: hearing grossly normal - Neck Neck: Present: normal ROM - Respiratory Respiratory: bilateral: CTA - Cardiovascular Rhythm: regular Heart sounds: normal: S1, S2 - Integumentary Integumentary: Present: normal turgor - Musculoskeletal Musculoskeletal: Present: gait normal - Psychiatric Psychiatric: Present: A&O x's 3, appropriate affect, intact judgment & insight - Additional findings Additional findings: Breast Exam: BRA: 38C inspection: Grade 2 ptosis bilaterally Palpation: Right breast: Multi-positional exam fibrocystic changes no dominant masses or nodules of concern Right axilla: No adenopathy of concern Left breast multiposition exam fibrocystic changes no dominant masses or nodules of concern Left axilla: No adenopathy of concern Assessment and Plan Assessment: Impression: Improved mastodynia Fibrocystic breast changes Bilateral mammogram 09-21-23 BIRAD 2 Plan: Bilateral mammogram in 1 year with physician exam at that time; September 2024 Patient to follow up sooner any questions or concerns CC: Dr. Galeas
[2023-09-24 13:41] VITALS: BP 133/88; PULSE 84; RESP 17; TEMP 98.6
== END ==
LOC: WWCWWP 12:56
PROVIDERS: ATTEND Surgery
DX: R92.8 Other abnormal and inconclusive findings on diagnostic imaging of breast (principal); N60.11 Diffuse cystic mastopathy of right breast; N60.12 Diffuse cystic mastopathy of left breast; N64.4 Mastodynia; Z80.3 Family history of malignant neoplasm of breast; Z88.8 Allergy status to other drugs, medicaments and biological substances

== ENCOUNTER → 2024-06-28 | Outpatient (CLI) | payer BC ==
[2024-06-28 18:38] LABS: Basophils # (A) 0.02 X 10*3/uL (0.00-0.10); Basophils % (A) 0.3 %; Eosinophils # (A) 0.16 X 10*3/uL (0.04-0.35); Eosinophils % (A) 2.2 %; HGB 13.6 g/dL (12.0-15.0); Lymphocytes # (A) 2.05 X 10*3/uL (0.90-5.00); Lymphocytes % (A) 27.7 %; MCH 30.2 pg (27.0-32.0); MCHC 33.2 g/dL (32.0-37.0); MCV 90.9 FL (80.0-97.0); Mean Platelet Volume 10.1 FL (9.5-12.2); Monocytes # (A) 0.65 X 10*3/uL (0.20-1.00); Monocytes % (A) 8.8 %; NRBC Per 100 WBC 0 X 10*3/uL (0.00-0.01); Neutrophils # (A) 4.49 X 10*3/uL (1.80-7.70); Neutrophils % (A) 60.6 %; Platelet Count 293 X 10*3/uL (140-440); RBC 4.51 X 10*6/uL (4.10-5.20); RDW 12.7 % (11.5-14.5)
== END | disposition home or self-care (01) ==
LOC: LABPAT 15:04
PROVIDERS: ATTEND Obstetrics & Gynecology
DX: Z01.818 Encounter for other preprocedural examination (principal)
CPT/HCPCS: 85025

== ENCOUNTER → 2024-09-23 | Outpatient (CLI) | payer BC ==
--- NOTE | 2024-09-23 11:13 | MM ---
Reason for Exam: Screening (asymptomatic). Last screening mammogram was performed 12 month(s) ago. Patient History: Menarche at age 10. First Full-Term at age 24. Patient has history of breast feeding. Maternal grandmother had breast cancer, age 70. Risk Values: Virginie 5 year model risk: 0.9%. NCI Lifetime model risk: 10.5%. Prior Study Comparison: 09/16/2021 Bilateral Screening Mammogram, [facility]. 09/18/2022 Bilateral MG 3D screening mammo w/cad, [facility]. 09/21/2023 Bilateral MG 3D screening mammo w/cad, [facility]. Tissue Density: There are scattered areas of fibroglandular density. Findings: Analyzed By CAD. There is no suspicious group of microcalcifications or new suspicious mass in either breast. Chronic nodularity right breast stable. There are 2 nodules within the left breast which are slightly increased in size especially dating back to 2021 within the upper outer quadrant left breast 4.6 cm from the nipple and in the lower retroareolar region on the left.. Overall Assessment: Incomplete: need additional imaging evaluation, BI-RAD 0 Management: Diagnostic Breast Ultrasound of the left breast. . Patient should continue monthly self-breast exams. A clinical breast exam by your physician is recommended on an annual basis. This exam should not preclude additional follow-up of suspicious palpable abnormalities. Note on Virginie scores and lifetime risk: 1. A Virginie score greater than 3% is considered moderate risk. If this is the case, consider specialist referral to assess eligibility for a risk reducing agent. 2. If overall lifetime risk for the development of breast cancer is 20% or higher, the patient may qualify for future screening with alternating mammogram and breast MRI. [facility], , 09/23/2024 11:10 AM. Electronically signed and approved by: Allen Ruiz M.D. Radiologis
== END | disposition home or self-care (01) ==
LOC: RADMAMWWP 10:45
PROVIDERS: ATTEND Surgery
DX: Z12.31 Encounter for screening mammogram for malignant neoplasm of breast (principal); R92.323 Mammographic fibroglandular density, bilateral breasts; Z80.3 Family history of malignant neoplasm of breast
CPT/HCPCS: 77063; 77067

== ENCOUNTER → 2024-09-27 | Outpatient (CLI) | payer BC ==
--- NOTE | 2024-09-27 08:04 | USB ---
Reason for Exam: Additional evaluation requested from abnormal screening. Patient History: Menarche at age 10. First Full-Term at age 24. Patient has history of breast feeding. Maternal grandmother had breast cancer, age 70. Risk Values: Virginie 5 year model risk: 0.9%. NCI Lifetime model risk: 10.5%. Technique: Method: Targeted. Prior Study Comparison: 09/18/2022 Bilateral MG 3D screening mammo w/cad, [facility]. 09/21/2023 Bilateral MG 3D screening mammo w/cad, [facility]. 09/23/2024 Bilateral MG 3D screening mammo w/cad, [facility]. Findings: The upper outer quadrant of the left breast, the lateral section of the breast of the left breast, the axilla of the left breast and the retroareolar of the left breast were scanned. Stable cluster of cysts noted at the left 5:00 position 3 cm from the nipple measuring 7 x 3 mm. Stable dating back to 02/24/2019. No solid masses appreciated. Overall Assessment: Benign, BI-RAD 2 Management: Screening Mammogram of both breasts in 1 year. A clinical breast exam by your physician is recommended on an annual basis and results should be correlated with mammographic findings. This exam should not preclude additional follow-up of suspicious palpable abnormalities. Results were given to the patient verbally at the time of exam. [facility], , 09/27/2024 8:00 AM. Electronically signed and approved by: Celestine Boyd M.D. Radiologis
== END | disposition home or self-care (01) ==
LOC: RADUSWWP 07:30
PROVIDERS: ATTEND Surgery
DX: R92.8 Other abnormal and inconclusive findings on diagnostic imaging of breast (principal); Z80.3 Family history of malignant neoplasm of breast

== ENCOUNTER → 2024-09-29 | Outpatient (CLI) | payer BC ==
[2024-09-29 13:56] VITALS: BP 137/89; PULSE 63; RESP 18; TEMP 98.1
--- NOTE | 2024-09-29 14:16 | P.PN ---
Subjective Progress Note Date: 09/29/24 Principal diagnosis: fibrocystic breast changes 09/24/23 Principal diagnosis: fibrocystic breast changes 09/25/22 Principal diagnosis: fibrocystic breast disease Diane is a 42-year-old white female who presented for breast evaluation on 08-12-18. She complained of breast discomfort which appeared to be cyclical occurring strongest right before her menstrual period started. She stated that the pain was greatest in the right breast in the upper outer quadrant area and at times extends into the axilla and she felt a sensation of discomfort down her right arm. She has started taking a vitamin; Shaklee GLA complex she states that this discomfort has subsided. However then she began complaining of some discomfort in the left breast in the medial aspect of the breast. This pain was likewise cyclical but not as uncomfortable as her right breast pain had been. She was not complaining of any new lumps masses or nodules in her breast. No nipple discharge or skin changes. No trauma or infection in her breast. She had a bilateral mammogram on 09-18-22. This was benign BIRAD 1. She has started using the Shaklee GLA complex about 3 months ago, she is uncertain as to what is in it. This time she is not complaining of any new lumps masses or not is of concern in either breast she is not complaining of any nipple discharge or skin changes. She is not complaining of any trauma or infection in her breast. 09-24-23 Bilateral mammogram on 09-21-23 BIRAD 2 personally reviewed To take the supplement Shaklee GLA complex She is not complaining of any new lumps masses or nodules of concern in her breast, the discomfort has improved She is still having regular periods. 09-29-24 Bilateral mammogram on 09-23-24 led to a left bresat ultrasound on 09-27-24 BIRAD 2 Still taking the supplement Shaklee GLA complex She is not complaining of any new lumps masses or nodules of concern in her breast, the discomfort has improved She is still having regular periods. Caffeine: occasional Nicotine: Negative Chocolate: Occasional hormones: Negative BCP: less than two years in the remote past Family history: 1. maternal grandmother: breast cancer, twice 2. maternal grandfather: prostate cancer Hormonal History: menarche: 9 G9,P4 children, 5 miscarrages, breast fed: yes, first at 24 periods: irregular BCP: 2 years, IUD without hormones hormones: none Surgical History: 1. D&C two 2. 3. lasix 4. anal fissure in 's 5. gallbladder Past Medical History: migrains (emgality for migrains, shot 1/month) Social History: smoke:none alcohol: none drugs: none - Constitutional Constitutional: Denies chills, Denies fever - EENT Eyes: Ears: Ears, nose, mouth and throat: Reports headache improved - Breasts Breasts: as per HPI - Cardiovascular Cardiovascular: Reports high blood pressure, Denies chest pain, Denies shortness of breath - Respiratory Respiratory: Denies cough - Gastrointestinal Gastrointestinal: Denies abdominal pain, Denies diarrhea, Denies nausea, Denies vomiting - Genitourinary (Female) Genitourinary: Denies dysuria, Denies hematuria - Menstruation Menstruation: Reports period normal, Reports period spotting - Musculoskeletal Comment: right hand arthritis Musculoskeletal: Denies myalgias - Integumentary Integumentary: Denies pruritus, Denies rash - Neurological Neurological: Denies numbness, Denies weakness - Psychiatric Psychiatric: Denies anxiety, Denies depression - Endocrine Endocrine: Denies fatigue, Denies weight change - Hematologic/Lymphatic Comment: none - Allergic/Immunologic Comment: shots every two weeks Allergic/Immunologic: Reports seasonal allergies Objective - Vital Signs Vital signs: Vital Signs Temp 98.1 F 09/29/24 13:54 Pulse 63 09/29/24 13:54 Resp 18 09/29/24 13:54 BP 137/89 09/29/24 13:54 Pulse Ox 100 09/29/24 13:54 FiO2 Intake & Output 09/28/24 09/29/24 09/29/24 18:59 06:59 18:59 Weight 74.843 kg - Constitutional General appearance: Present: cooperative - EENT Eyes: Present: EOMI ENT: Present: hearing grossly normal - Neck Neck: Present: normal ROM - Respiratory Respiratory: bilateral: CTA - Cardiovascular Rhythm: regular Heart sounds: normal: S1, S2 - Integumentary Integumentary: Present: normal turgor - Musculoskeletal Musculoskeletal: Present: gait normal - Psychiatric Psychiatric: Present: A&O x's 3, appropriate affect, intact judgment & insight - Additional findings Additional findings: Breast Exam: BRA: 38C inspection: Grade 2 ptosis bilaterally Palpation: Right breast: Multi-positional exam fibrocystic changes no dominant masses or nodules of concern Right axilla: No adenopathy of concern Left breast multiposition exam fibrocystic changes no dominant masses or nodules of concern Left axilla: No adenopathy of concern fungal infection under both breast Assessment and Plan Assessment: Impression: Improved mastodynia Fibrocystic breast changes Bilateral mammogram 09-23-24 BIRAD 0, left bresaet ultrasound 09-27-24 BIRAD 2 fungal infection under both breast treat with nystatin Plan: nystatin under each breast Bilateral mammogram in 1 year with physician exam at that time; September 2025 Patient to follow up sooner any questions or concerns CC: Dr. Galeas
== END ==
LOC: WWCWWP 12:59
PROVIDERS: ATTEND Surgery
DX: Z12.31 Encounter for screening mammogram for malignant neoplasm of breast (principal); N60.19 Diffuse cystic mastopathy of unspecified breast; B37.89 Other sites of candidiasis; Z91.018 Allergy to other foods; Z88.8 Allergy status to other drugs, medicaments and biological substances